=== PATIENT | male | born 1970 | race Caucasian/White ===

== ENCOUNTER 2021-04-26 13:41 | Outpatient (CLI) | payer BC | END 2021-04-26 13:42 | disposition home or self-care (01) | LOC: CSHMRI 13:41 | PROVIDERS: ATTEND Orthopaedic Surgery Hand Surgery | DX: M19.032 Primary osteoarthritis, left wrist (principal); M67.834 Other specified disorders of tendon, left wrist; M67.432 Ganglion, left wrist ==